=== PATIENT | male | born 1960 | race Caucasian/White ===

== ENCOUNTER 2020-03-25 19:44 | Emergency (ER) | payer OTHER ==
--- NOTE | 2020-03-25 19:59 | PDOC ---
History of Present Illness - General Chief Complaint: Edema Stated Complaint: SWOLLEN RIGHT CALF Time Seen by Provider: 03/25/20 19:58 History Source: Patient Exam Limitations: No Limitations - History of Present Illness Initial Comments: 03/25/20 20:00 59yM w PMHx polysubstance abuse (currently heroin, last use yesterday), OA, Hep B, L foot 1st toe partial amputation 2/2 frostbite, depression, PTSD presenting from [facility] w 4d mild RLE swelling and tenderness. Still ambulates w walker. Never had prior DVT before, not on anticoagulation. Presented to [facility] for heroin detox, referred to ED for further eval. Denies fever, n/v, leg numbness/warmth/trauma. Past History - Medical History Allergies/Adverse Reactions: Allergies Allergy/AdvReac Type Severity Reaction Status Date / Time No Known Allergies Allergy Verified 03/25/20 20:00 Asthma: No Cardiac Disorders: No COPD: No Diabetes: No GI Disorders: No Disorders: No HTN: No Kidney Stones: No Seizures: No - Surgical History Abdominal Surgery: No Appendectomy: No Cardiac Surgery: No Cholecystectomy: No Lung Surgery: No Neurologic Surgery: No Orthopedic Surgery: No - Reproductive History Testicular Surgery: No - Psycho-Social/Smoking History Smoking History: Current every day smoker Have you smoked in the past 12 months: Yes Number of Cigarettes Smoked Daily: 12 Review of Systems - Review of Systems Constitutional: No: Chills, Fever HEENTM: No: Eye Pain, Nose Pain Respiratory: No: Cough, Shortness of Breath Cardiac (ROS): No: Chest Pain, Lightheadedness ABD/GI: No: Nausea, Vomiting : No: Burning, Dysuria Musculoskeletal: No: Back Pain, Joint Pain Integumentary: No: Bruising, Dryness Neurological: No: Headache, Seizure Psychiatric: No: Anxiety, Depression Endocrine: No: Intolerance to Cold, Intolerance to Heat Hematologic/Lymphatic: No: Anemia, Blood Clots *Physical Exam - Physical Exam General Appearance: Yes: Nourished, Appropriately Dressed. No: Apparent Distres s HEENT: positive: EOMI, JUAN, Normal Voice, Hearing Grossly Normal. negative: Scleral Icterus (R), Scleral Icterus (L) Respiratory/Chest: positive: Lungs Clear, Normal Breath Sounds. negative: Chest Tender, Respiratory Distress, Crackles, Rales, Rhonchi, Stridor, Wheezing Cardiovascular: positive: Regular Rhythm, Regular Rate, S1, S2. negative: Murmur Vascular Pulses: Dorsalis-Pedis (R): 2+, Doralis-Pedis (L): 2+ Gastrointestinal/Abdominal: positive: Normal Bowel Sounds, Flat, Soft. negative: Tender, Organomegaly Extremity: positive: Swelling (RLE 2+ pitting edema ankle to knee, mildly tender to palptation, not warmer than surrounding area, no erythema, no discharge/open wounds, shallow ulcers 2/2 prior tight cast), Other (pigmented skin 2/2 prolonged skin exposure, healing superficial partial thickness sunburn RLE medial thigh, L 1st toe partial amputation, deformed R foot, R ankle surgical scars) Integumentary: positive: Warm Neurologic: positive: Fully Oriented, Alert, Normal Response, Motor Strength 5/5, Responsive. negative: Facial Droop, Numbness, Sensory Deficit, Confused, Disoriented Medical Decision Making - Medical Decision Making 03/25/20 20:14 59yM w PMHx polysubstance abuse (currently heroin, last use yesterday), OA, Hep B, L foot 1st toe partial amputation 2/2 frostbite, depression, PTSD presenting from [facility] w 4d mild RLE swelling and tenderness. BLE neurovascular intact, pt able to ambulate w walker. Likely lymphedema. Low concern for cellulitis (not warm) vs DVT (duplex neg) Given tylenol Updated ED course w Dr Edgardo DC back to [facility] w PCP f/u Discharge - Discharge Information Problems reviewed: Yes Clinical Impression/Diagnosis: Right leg swelling Condition: Good Disposition: HOME - Follow up/Referral Referrals: Gordon Bailey MD [Staff Physician] - - Patient Discharge Instructions Patient Printed Discharge Instructions: DI for Lymphedema Additional Instructions: You do not have a blood clot in your leg Wrap your leg in a compression sock and keep it elevated to reduce swelling Please follow up with the referred primary care Dr Bailey - Post Discharge Activity
[2020-03-25 20:00] VITALS: BP 118/80; PULSE 70; TEMP 99.1; BMI 26.7
[2020-03-25] MEDS ORDERED: ACETAMINOPHEN 500 MG TABLET (FP) PO ONE (20:10)
[2020-03-25] MEDS ORDERED: ACETAMINOPHEN 325 MG TABLET (FP) ONE (20:12)
--- NOTE | 2020-03-25 20:44 | PDOC ---
Documentation entered by Gina Parker SCRIBE, acting as scribe for Felicia Vargas MD. Felicia Vargas MD: This documentation has been prepared by the brentibeKeith Ana, SCRIBE, under my direction and personally reviewed by me in its entirety. I confirm that the documentation accurately reflects all work, treatment, procedures, and medical decision making performed by me. Attending Attestation - Resident Resident Name: MameJf - ED Attending Attestation I have performed the following: I have examined & evaluated the patient, The case was reviewed & discussed with the resident, I agree w/resident's findings & plan, Exceptions are as noted - HPI HPI: 03/25/20 20:18 Patient is a 59 year old male with a significant past medical history of substance abuse, osteoarthritis, hepatitis B, depression, PTSD, and left 1st toe amputation 2/2 frostbite, who presents to the ED, from [facility], with mild right lower extremity swelling and tenderness x4 days. Patient was at [facility] for heroin detox and came to ED for further evaluation. Patient ambulates with walker. Patient denies: trauma, warmth, numbness, or any other related symptoms. Allergies: NKDA - Physicial Exam PE: 03/25/20 20:37 tall slender 5o male disheveled p/W c/o right lower leg swelling head ncat lung no wheezing cvs [id number] abddomen nontender extremities LE edema , R>L, chronic venous stasis ,old surgical scars neuro alert and conversant 03/25/20 20:42 - Medical Decision Making 03/25/20 21:24 duplex doppler : there is no dvt in the right leg 03/25/20 21:27 called [id number] and spoke with [facility] staff and they agreed pt could be sent back by security Discharge - Discharge Information Problems reviewed: Yes Clinical Impression/Diagnosis: Right leg swelling Condition: Good Disposition: HOME - Follow up/Referral Referrals: Gordon Bailey MD [Staff Physician] - - Patient Discharge Instructions Patient Printed Discharge Instructions: DI for Lymphedema Additional Instructions: You do not have a blood clot in your leg Wrap your leg in a compression sock and keep it elevated to reduce swelling Please follow up with the referred primary care Dr Bailey - Post Discharge Activity
[2020-03-26] MEDS ORDERED: traZODone HCL 50 MG TABLET (FP) PO SCH (22:00)
== END 2020-03-25 22:08 | disposition home or self-care (01) ==
LOC: JER 19:44
DX: R22.41 Localized swelling, mass and lump, right lower limb (principal)
CPT/HCPCS: 93971-TC; 99284-25

== ENCOUNTER 2020-03-28 11:26 | Inpatient (IN) | payer OTHER ==
[2020-03-28] MEDS ORDERED: MENTHOL/PHENOL 1 EACH UD MM PRN (12:14)
[2020-03-28] MEDS ORDERED: MAGNESIUM HYDROX 2400MG/30ML ORAL SUSPENSION 30 ML CUP PO PRN (12:14)
[2020-03-28] MEDS ORDERED: guaiFENesin 200 MG/10 ML 10 ML UNIT-DOSE CUPS PO PRN (12:14)
[2020-03-28] MEDS ORDERED: LOPERAMIDE HCL 2 MG CAPSULE PO PRN (12:14)
[2020-03-28] MEDS ORDERED: MAG HYDROX/AL HYDROX/SIMETH 30 ML UNIT-DOSE CUP PO PRN (12:14)
[2020-03-28] MEDS ORDERED: MAGNESIUM CITRATE 300 ML BOTTLE PO PRN (12:14)
[2020-03-28] MEDS ORDERED: P-EPHED 60MG/TRIPROLIDI 2.5MG TABLET PO PRN (12:14)
--- NOTE | 2020-03-28 12:23 | HP ---
[facility] Rehab Assess/Revision - Admission History Admitted to Rehab from: [facility] [place] - Vital signs Vital Signs: Vital Signs Period Temp Pulse Resp BP Sys/Anderson Pulse Ox Last 24 Hr 97.8 F 75 18 142/78 - Findings Detox History & Physical reviewed: Yes Concur with findings: Yes Inpatient Rehab Admission - Rehab Decision to Admit Inpatient rehab admission?: Yes - Initial Determination Are CD services needed?: Yes Free of communicable disease: Yes Not in need of hospitalization: Yes - Rehab Admission Criteria Previous failed treatment: Yes Poor recovery environment: Yes Comorbidities: No Lacks judgement: No Patient is meeting Inpatient Rehab admission criteria:: Yes
[2020-03-28] MEDS: hydrOXYzine PAMOATE 25 MG CAPSULE (FP) PO SCH ×3 (14:03→21:34)
[2020-03-28] MEDS: MELATONIN 5 MG TABLETS PO SCH (21:33)
[2020-03-28] MEDS: THIAMINE HCL 100 MG TABLET (FP) PO SCH (21:34)
[2020-03-28] MEDS: SILVER SULFADIAZINE 1% TOP CREAM 50 GM JAR TP SCH (21:34)
[2020-03-29] MEDS: hydrOXYzine PAMOATE 25 MG CAPSULE (FP) PO SCH ×5 (06:10→21:48)
[2020-03-29] MEDS: PRENATAL VITAMINS W/ FOLIC ACID TABLET (FP) PO SCH (10:20)
[2020-03-29] MEDS: NICOTINE 7 MG/24 HOURS TOPICAL PATCH TD SCH (10:20)
[2020-03-29] MEDS: SILVER SULFADIAZINE 1% TOP CREAM 50 GM JAR TP SCH ×2 (10:22→21:48)
[2020-03-29] MEDS: ACETAMINOPHEN 325 MG TABLET (FP) PO PRN (21:47)
[2020-03-29] MEDS: THIAMINE HCL 100 MG TABLET (FP) PO SCH (21:48)
[2020-03-29] MEDS: MELATONIN 5 MG TABLETS PO SCH (21:48)
[2020-03-30] MEDS: hydrOXYzine PAMOATE 25 MG CAPSULE (FP) PO SCH ×5 (06:17→21:17)
[2020-03-30] MEDS: PRENATAL VITAMINS W/ FOLIC ACID TABLET (FP) PO SCH (10:33)
[2020-03-30] MEDS: SILVER SULFADIAZINE 1% TOP CREAM 50 GM JAR TP SCH ×2 (10:33→21:18)
[2020-03-30] MEDS: NICOTINE 7 MG/24 HOURS TOPICAL PATCH TD SCH (10:36)
[2020-03-30] MEDS: THIAMINE HCL 100 MG TABLET (FP) PO SCH (21:17)
[2020-03-30] MEDS: MELATONIN 5 MG TABLETS PO SCH (21:17)
[2020-03-31] MEDS: hydrOXYzine PAMOATE 25 MG CAPSULE (FP) PO SCH ×2 (06:16→10:25)
[2020-03-31] MEDS: ACETAMINOPHEN 325 MG TABLET (FP) PO PRN ×2 (06:17→22:11)
[2020-03-31] MEDS: PRENATAL VITAMINS W/ FOLIC ACID TABLET (FP) PO SCH (10:25)
[2020-03-31] MEDS: NICOTINE 7 MG/24 HOURS TOPICAL PATCH TD SCH (10:25)
[2020-03-31] MEDS: SILVER SULFADIAZINE 1% TOP CREAM 50 GM JAR TP SCH ×2 (10:26→22:09)
[2020-03-31] MEDS: hydrOXYzine PAMOATE 50 MG CAPSULE (FP) PO PRN (22:09)
[2020-03-31] MEDS: THIAMINE HCL 100 MG TABLET (FP) PO SCH (22:09)
[2020-03-31] MEDS: MELATONIN 5 MG TABLETS PO SCH (22:09)
[2020-04-01] MEDS: PRENATAL VITAMINS W/ FOLIC ACID TABLET (FP) PO SCH (10:24)
[2020-04-01] MEDS: hydrOXYzine PAMOATE 50 MG CAPSULE (FP) PO PRN (10:24)
[2020-04-01] MEDS: SILVER SULFADIAZINE 1% TOP CREAM 50 GM JAR TP SCH ×2 (10:25→22:12)
[2020-04-01] MEDS: ACETAMINOPHEN 325 MG TABLET (FP) PO PRN (10:25)
[2020-04-01] MEDS: NICOTINE 7 MG/24 HOURS TOPICAL PATCH TD SCH (10:45)
--- NOTE | 2020-04-01 15:01 | PN ---
S Progress Note Note: Patient was seen by Dr Coronado on 03/26/20 and Trazdone 50 mg/hs was ordered. Resume Trazadone 50 mg/hs
[2020-04-01] MEDS: IBUPROFEN 400 MG TABLET (FP) PO PRN (18:07)
[2020-04-01] MEDS: NICOTINE POLACRILEX 2 MG GUM BUC PRN ×2 (18:08→21:28)
[2020-04-01] MEDS: THIAMINE HCL 100 MG TABLET (FP) PO SCH (21:28)
[2020-04-01] MEDS: MELATONIN 5 MG TABLETS PO SCH (21:28)
[2020-04-01] MEDS: traZODone HCL 50 MG TABLET (FP) PO SCH (21:29)
[2020-04-02] MEDS: hydrOXYzine PAMOATE 50 MG CAPSULE (FP) PO PRN ×3 (06:33→22:03)
[2020-04-02] MEDS: IBUPROFEN 400 MG TABLET (FP) PO PRN ×2 (06:33→22:02)
[2020-04-02] MEDS: NICOTINE POLACRILEX 2 MG GUM BUC PRN (06:34)
[2020-04-02] MEDS: NICOTINE 7 MG/24 HOURS TOPICAL PATCH TD SCH (10:18)
[2020-04-02] MEDS: PRENATAL VITAMINS W/ FOLIC ACID TABLET (FP) PO SCH (10:18)
[2020-04-02] MEDS: SILVER SULFADIAZINE 1% TOP CREAM 50 GM JAR TP SCH ×2 (10:19→22:03)
[2020-04-02] MEDS: MELATONIN 5 MG TABLETS PO SCH (22:03)
[2020-04-02] MEDS: traZODone HCL 50 MG TABLET (FP) PO SCH (22:03)
[2020-04-02] MEDS: THIAMINE HCL 100 MG TABLET (FP) PO SCH (22:03)
[2020-04-03] MEDS: SILVER SULFADIAZINE 1% TOP CREAM 50 GM JAR TP SCH ×2 (10:00→21:42)
[2020-04-03] MEDS: hydrOXYzine PAMOATE 50 MG CAPSULE (FP) PO PRN ×2 (10:00→21:27)
[2020-04-03] MEDS: PRENATAL VITAMINS W/ FOLIC ACID TABLET (FP) PO SCH (10:00)
[2020-04-03] MEDS: NICOTINE 7 MG/24 HOURS TOPICAL PATCH TD SCH (10:00)
[2020-04-03] MEDS: IBUPROFEN 400 MG TABLET (FP) PO PRN ×2 (10:00→21:27)
[2020-04-03] MEDS: ACETAMINOPHEN 325 MG TABLET (FP) PO PRN (14:37)
[2020-04-03] MEDS: MELATONIN 5 MG TABLETS PO SCH (21:26)
[2020-04-03] MEDS: THIAMINE HCL 100 MG TABLET (FP) PO SCH (21:26)
[2020-04-03] MEDS: traZODone HCL 50 MG TABLET (FP) PO SCH (21:26)
[2020-04-04] MEDS: PRENATAL VITAMINS W/ FOLIC ACID TABLET (FP) PO SCH (09:51)
[2020-04-04] MEDS: hydrOXYzine PAMOATE 50 MG CAPSULE (FP) PO PRN (09:51)
[2020-04-04] MEDS: NICOTINE 7 MG/24 HOURS TOPICAL PATCH TD SCH (09:51)
[2020-04-04] MEDS: IBUPROFEN 400 MG TABLET (FP) PO PRN ×2 (09:52→21:29)
[2020-04-04] MEDS: SILVER SULFADIAZINE 1% TOP CREAM 50 GM JAR TP SCH ×2 (09:55→21:29)
[2020-04-04] MEDS: MELATONIN 5 MG TABLETS PO SCH (21:29)
[2020-04-04] MEDS: THIAMINE HCL 100 MG TABLET (FP) PO SCH (21:29)
[2020-04-04] MEDS: traZODone HCL 50 MG TABLET (FP) PO SCH (21:29)
[2020-04-05] MEDS ORDERED: PT OWN MED DRAWER 7, Y5N ONE (08:24)
[2020-04-05] MEDS: NICOTINE 7 MG/24 HOURS TOPICAL PATCH TD SCH (10:09)
[2020-04-05] MEDS: PRENATAL VITAMINS W/ FOLIC ACID TABLET (FP) PO SCH (10:09)
[2020-04-05] MEDS: SILVER SULFADIAZINE 1% TOP CREAM 50 GM JAR TP SCH ×2 (10:10→22:15)
[2020-04-05] MEDS: IBUPROFEN 400 MG TABLET (FP) PO PRN (10:10)
[2020-04-05] MEDS: MELATONIN 5 MG TABLETS PO SCH (21:36)
[2020-04-05] MEDS: traZODone HCL 50 MG TABLET (FP) PO SCH (21:36)
[2020-04-05] MEDS: THIAMINE HCL 100 MG TABLET (FP) PO SCH (21:36)
[2020-04-06] MEDS: NICOTINE 7 MG/24 HOURS TOPICAL PATCH TD SCH (09:46)
[2020-04-06] MEDS: SILVER SULFADIAZINE 1% TOP CREAM 50 GM JAR TP SCH ×2 (09:47→21:15)
[2020-04-06] MEDS: IBUPROFEN 400 MG TABLET (FP) PO PRN ×2 (09:47→21:17)
[2020-04-06] MEDS: PRENATAL VITAMINS W/ FOLIC ACID TABLET (FP) PO SCH (09:47)
[2020-04-06] MEDS: hydrOXYzine PAMOATE 50 MG CAPSULE (FP) PO PRN (09:47)
[2020-04-06] MEDS: ACETAMINOPHEN 325 MG TABLET (FP) PO PRN (17:34)
[2020-04-06] MEDS: MELATONIN 5 MG TABLETS PO SCH (21:16)
[2020-04-06] MEDS: THIAMINE HCL 100 MG TABLET (FP) PO SCH (21:16)
[2020-04-06] MEDS: traZODone HCL 50 MG TABLET (FP) PO SCH (21:16)
[2020-04-07] MEDS: NICOTINE 7 MG/24 HOURS TOPICAL PATCH TD SCH (10:16)
[2020-04-07] MEDS: PRENATAL VITAMINS W/ FOLIC ACID TABLET (FP) PO SCH (10:16)
[2020-04-07] MEDS: SILVER SULFADIAZINE 1% TOP CREAM 50 GM JAR TP SCH ×2 (10:16→21:28)
[2020-04-07] MEDS: NICOTINE POLACRILEX 2 MG GUM BUC PRN (10:16)
[2020-04-07] MEDS: hydrOXYzine PAMOATE 50 MG CAPSULE (FP) PO PRN ×2 (10:16→21:29)
[2020-04-07] MEDS: IBUPROFEN 400 MG TABLET (FP) PO PRN (10:18)
[2020-04-07] MEDS: MELATONIN 5 MG TABLETS PO SCH (21:28)
[2020-04-07] MEDS: traZODone HCL 50 MG TABLET (FP) PO SCH (21:28)
[2020-04-07] MEDS: THIAMINE HCL 100 MG TABLET (FP) PO SCH (21:28)
[2020-04-08] MEDS: PRENATAL VITAMINS W/ FOLIC ACID TABLET (FP) PO SCH (09:55)
[2020-04-08] MEDS: hydrOXYzine PAMOATE 50 MG CAPSULE (FP) PO PRN ×2 (09:55→21:20)
[2020-04-08] MEDS: IBUPROFEN 400 MG TABLET (FP) PO PRN ×2 (09:57→21:20)
[2020-04-08] MEDS: NICOTINE 7 MG/24 HOURS TOPICAL PATCH TD SCH (10:08)
[2020-04-08] MEDS: SILVER SULFADIAZINE 1% TOP CREAM 50 GM JAR TP SCH ×2 (10:08→21:19)
[2020-04-08] MEDS: NICOTINE POLACRILEX 2 MG GUM BUC PRN (11:02)
[2020-04-08] MEDS: THIAMINE HCL 100 MG TABLET (FP) PO SCH (21:19)
[2020-04-08] MEDS: traZODone HCL 50 MG TABLET (FP) PO SCH (21:19)
[2020-04-08] MEDS: MELATONIN 5 MG TABLETS PO SCH (21:20)
[2020-04-09] MEDS: hydrOXYzine PAMOATE 50 MG CAPSULE (FP) PO PRN ×2 (10:02→21:21)
[2020-04-09] MEDS: PRENATAL VITAMINS W/ FOLIC ACID TABLET (FP) PO SCH (10:02)
[2020-04-09] MEDS: IBUPROFEN 400 MG TABLET (FP) PO PRN ×2 (10:03→21:21)
[2020-04-09] MEDS: NICOTINE 7 MG/24 HOURS TOPICAL PATCH TD SCH (10:07)
[2020-04-09] MEDS: SILVER SULFADIAZINE 1% TOP CREAM 50 GM JAR TP SCH ×2 (10:07→21:21)
[2020-04-09] MEDS: traZODone HCL 50 MG TABLET (FP) PO SCH (21:21)
[2020-04-09] MEDS: THIAMINE HCL 100 MG TABLET (FP) PO SCH (21:21)
[2020-04-09] MEDS: MELATONIN 5 MG TABLETS PO SCH (21:21)
[2020-04-10] MEDS: NICOTINE 7 MG/24 HOURS TOPICAL PATCH TD SCH (10:07)
[2020-04-10] MEDS: PRENATAL VITAMINS W/ FOLIC ACID TABLET (FP) PO SCH (10:08)
[2020-04-10] MEDS: SILVER SULFADIAZINE 1% TOP CREAM 50 GM JAR TP SCH ×2 (10:08→21:39)
[2020-04-10] MEDS: IBUPROFEN 400 MG TABLET (FP) PO PRN ×2 (10:09→21:41)
[2020-04-10] MEDS: hydrOXYzine PAMOATE 50 MG CAPSULE (FP) PO PRN ×2 (10:09→21:40)
--- NOTE | 2020-04-10 10:09 | CONSULT ---
[facility] Psychiatric Consult - Data Date of interview: 04/10/20 Admission source: [facility] Identifying data: Patient is a 59 year old male, , father of a 29 year old son, unemployed, disabled and is supported on personal savings. This is patient's first admission to rehab at [facility]. Patient admitted to [facility] for treatment of heroin, benzodiazepine (xanax), nicotine. Substance Abuse History: Smoking Cessation. Smoking history: Current every day smoker. Have you smoked in the past 12 months: Yes. Initiated information on smoking cessation: Yes. 'Breaking Loose' booklet given: 03/25/20. - Substances abused. Heroin. Substance route: Inhalation. Frequency: Daily. Amount used: 7 BAGS. Age of first use: 18. Date of last use: 03/24/20 Medical History: Medical profile is remarkable for hepatitis B, diabetes mellitus, osteoarthritis (knees, shoulders, ankles), partial amputation of first toe (left foot) due to frostbite in 2019 and history of orthosurgery (fracture of right humerus + right ankle). Psychiatric History: Mr. Hariston reports history of two psychiatric hospitalizations ( [facility] + [facility]). His most recent hospitalization occured at [facility] in 2017 due to feeling depressed and having urges to hurt himself. Diagnosis of MDD +PTSD. Mr. Hairston most recently received outpatient psychiatric care at [facility] in 2018 and was prescribed Seroquel 100mg + Trazodone 100mg HS. Patient states that he buys trazodone 50mg from the streets. Patient was seen by Dr. Hinds and was prescribed trazodone 50mg HS. At present patient reports stable mood but is experiencing difficulty sleeping. Physical/Sexual Abuse/Trauma History: Girlfriend was murdered in 1977, multiple deaths in family, divorce, of second , financial difficulties, homelessness and addictions Mental Status Exam - Mental Status Exam Alert and Oriented to: Time, Place, Person Cognitive Function: Good Patient Appearance: Well Groomed Mood: Hopeful Affect: Appropriate Patient Behavior: Appropriate, Cooperative Speech Pattern: Appropriate Voice Loudness: Normal Thought Process: Intact, Goal Oriented Hallucinations: Denies Suicidal Ideation: Denies Homicidal Ideation: Denies Insight/Judgement: Poor Sleep: Poorly Appetite: Fair Muscle strength/Tone: Normal Gait/Station: Normal Psychiatric Findings - Problem List ([place] 1, 2,3) (1) Substance-induced sleep disorder Current Visit: Yes Status: Acute (2) Nicotine abuse Current Visit: Yes Status: Chronic (3) Opioid use disorder Current Visit: Yes Status: Chronic (4) H/O: depression Current Visit: No Status: Chronic - Initial Treatment Plan Initial Treatment Plan: Psychoeducation provided. Detoxification in progress. Will d/c Trazodone 50mg HS + Melatonin 5mg HS. Will order Trazodone 100mg HS + Melatonin 10mg HS PRN. Benefits and side effects discussed. Verbal consent given.
[2020-04-10] MEDS: NICOTINE POLACRILEX 2 MG GUM BUC PRN (10:10)
[2020-04-10] MEDS: THIAMINE HCL 100 MG TABLET (FP) PO SCH (21:40)
[2020-04-10] MEDS: MELATONIN 5 MG TABLETS PO SCH (21:40)
[2020-04-10] MEDS: traZODone HCL 100 MG TABLET (FP) PO SCH (21:41)
[2020-04-11] MEDS ORDERED: PT OWN MED DRAWER 7, Y5N ONE (08:25)
[2020-04-11] MEDS: PRENATAL VITAMINS W/ FOLIC ACID TABLET (FP) PO SCH (10:32)
[2020-04-11] MEDS: IBUPROFEN 400 MG TABLET (FP) PO PRN (10:32)
[2020-04-11] MEDS: NICOTINE POLACRILEX 2 MG GUM BUC PRN (10:33)
[2020-04-11] MEDS: NICOTINE 7 MG/24 HOURS TOPICAL PATCH TD SCH (10:34)
[2020-04-11] MEDS: SILVER SULFADIAZINE 1% TOP CREAM 50 GM JAR TP SCH ×2 (10:34→21:41)
[2020-04-11] MEDS: THIAMINE HCL 100 MG TABLET (FP) PO SCH (21:39)
[2020-04-11] MEDS: traZODone HCL 100 MG TABLET (FP) PO SCH (21:39)
[2020-04-11] MEDS: MELATONIN 5 MG TABLETS PO SCH (21:41)
[2020-04-12] MEDS ORDERED: PT OWN MED DRAWER 7, Y5N ONE (09:29)
[2020-04-12] MEDS: PRENATAL VITAMINS W/ FOLIC ACID TABLET (FP) PO SCH (09:54)
[2020-04-12] MEDS: IBUPROFEN 400 MG TABLET (FP) PO PRN ×2 (09:55→21:24)
[2020-04-12] MEDS: NICOTINE 7 MG/24 HOURS TOPICAL PATCH TD SCH (09:56)
[2020-04-12] MEDS: SILVER SULFADIAZINE 1% TOP CREAM 50 GM JAR TP SCH ×2 (09:56→21:27)
[2020-04-12] MEDS: traZODone HCL 100 MG TABLET (FP) PO SCH (21:23)
[2020-04-12] MEDS: MELATONIN 5 MG TABLETS PO SCH (21:23)
[2020-04-12] MEDS: THIAMINE HCL 100 MG TABLET (FP) PO SCH (21:23)
[2020-04-13] MEDS: PRENATAL VITAMINS W/ FOLIC ACID TABLET (FP) PO SCH (09:44)
[2020-04-13] MEDS: IBUPROFEN 400 MG TABLET (FP) PO PRN ×2 (09:45→21:24)
[2020-04-13] MEDS: NICOTINE 7 MG/24 HOURS TOPICAL PATCH TD SCH (09:46)
[2020-04-13] MEDS: SILVER SULFADIAZINE 1% TOP CREAM 50 GM JAR TP SCH ×2 (09:47→21:25)
[2020-04-13] MEDS: MELATONIN 5 MG TABLETS PO SCH (21:24)
[2020-04-13] MEDS: hydrOXYzine PAMOATE 50 MG CAPSULE (FP) PO PRN (21:24)
[2020-04-13] MEDS: traZODone HCL 100 MG TABLET (FP) PO SCH (21:24)
[2020-04-13] MEDS: THIAMINE HCL 100 MG TABLET (FP) PO SCH (21:24)
[2020-04-14] MEDS: PRENATAL VITAMINS W/ FOLIC ACID TABLET (FP) PO SCH (10:19)
[2020-04-14] MEDS: SILVER SULFADIAZINE 1% TOP CREAM 50 GM JAR TP SCH ×2 (10:19→21:38)
[2020-04-14] MEDS: NICOTINE 7 MG/24 HOURS TOPICAL PATCH TD SCH (10:19)
--- NOTE | 2020-04-14 14:03 | PN ---
[facility] Progress Note Note: Vital Signs Temperature 97.7 F 04/14/20 05:54 Pulse Rate 68 04/14/20 05:54 Respiratory Rate 18 04/14/20 05:54 Blood Pressure 100/60 04/14/20 05:54 O2 Sat by Pulse Oximetry (%) 98 04/14/20 05:54 Laboratory Tests 04/04/20 10:30 COVID-19 (GONZÁLEZ) Not detected PATIENT EVALUATED FOR C/O RECTAL BLEEDING (UNWITNESSED). PATIENT DENIES CONSTIPATION AND HX OF PRIOR RECTAL BLEEDING/HEMORRHOIDS. PATIENT STATES IT HAPPENED ONLY THIS MORNING AFTER BATHING. HE STATES AFTER HE WIPED HIMSELF, HE NOTED BLOOD ON TISSUE. DENIES ANY SYMPTOMS EXCEPT MILD DIZZINESS. HAS HX OF PRE DIABETES PE (EXAM CONDUCTED WITH PAM [place]RA[place] PRESENT) ALERT AND ORIENTED X 3 SKIN WARM AND DRY +PERRLA, EOMS INTACT BL GI NT, ND RECTAL AREA INTACT, NO EXTERNAL HEMORROIDS OR ACTIVE BLEEDING PRESENT A/P RECTAL BLEEDING (UNWITNESSED) DIZZINESS WILL MONITOR SYMPTOMS OF BLEEDING FOR NOW. PATIENT INFORMED TO CALL RN/FISH NET STRINGER IF BLEEDING OCCURS. WILL CHECK BGM DAILY X 3 DAYS DUE TO C/O DIZZINESS AND HX OF PREDM CONTINUE TO MONITOR CLINICALLY
[2020-04-14] MEDS: IBUPROFEN 400 MG TABLET (FP) PO PRN (21:37)
[2020-04-14] MEDS: traZODone HCL 100 MG TABLET (FP) PO SCH (21:37)
[2020-04-14] MEDS: MELATONIN 5 MG TABLETS PO SCH (21:37)
[2020-04-14] MEDS: THIAMINE HCL 100 MG TABLET (FP) PO SCH (21:38)
[2020-04-15] MEDS: PRENATAL VITAMINS W/ FOLIC ACID TABLET (FP) PO SCH (09:46)
[2020-04-15] MEDS: NICOTINE 7 MG/24 HOURS TOPICAL PATCH TD SCH (09:46)
[2020-04-15] MEDS: SILVER SULFADIAZINE 1% TOP CREAM 50 GM JAR TP SCH ×2 (09:47→21:24)
[2020-04-15] MEDS: IBUPROFEN 400 MG TABLET (FP) PO PRN ×2 (09:47→21:25)
[2020-04-15] MEDS: NICOTINE POLACRILEX 2 MG GUM BUC PRN (09:48)
[2020-04-15] MEDS: traZODone HCL 100 MG TABLET (FP) PO SCH (21:24)
[2020-04-15] MEDS: hydrOXYzine PAMOATE 50 MG CAPSULE (FP) PO PRN (21:24)
[2020-04-15] MEDS: MELATONIN 5 MG TABLETS PO SCH (21:24)
[2020-04-15] MEDS: THIAMINE HCL 100 MG TABLET (FP) PO SCH (21:24)
[2020-04-16] MEDS: PRENATAL VITAMINS W/ FOLIC ACID TABLET (FP) PO SCH (10:09)
[2020-04-16] MEDS: hydrOXYzine PAMOATE 50 MG CAPSULE (FP) PO PRN ×2 (10:09→21:03)
[2020-04-16] MEDS: IBUPROFEN 400 MG TABLET (FP) PO PRN ×2 (10:10→21:03)
[2020-04-16] MEDS: NICOTINE 7 MG/24 HOURS TOPICAL PATCH TD SCH (10:19)
[2020-04-16] MEDS: SILVER SULFADIAZINE 1% TOP CREAM 50 GM JAR TP SCH ×2 (10:19→21:17)
[2020-04-16] MEDS: THIAMINE HCL 100 MG TABLET (FP) PO SCH (21:03)
[2020-04-16] MEDS: traZODone HCL 100 MG TABLET (FP) PO SCH (21:03)
[2020-04-16] MEDS: MELATONIN 5 MG TABLETS PO SCH (21:04)
[2020-04-17] MEDS: hydrOXYzine PAMOATE 50 MG CAPSULE (FP) PO PRN (09:59)
[2020-04-17] MEDS: PRENATAL VITAMINS W/ FOLIC ACID TABLET (FP) PO SCH (09:59)
[2020-04-17] MEDS: IBUPROFEN 400 MG TABLET (FP) PO PRN ×2 (09:59→21:25)
[2020-04-17] MEDS: NICOTINE 7 MG/24 HOURS TOPICAL PATCH TD SCH (10:00)
[2020-04-17] MEDS: SILVER SULFADIAZINE 1% TOP CREAM 50 GM JAR TP SCH ×2 (10:00→21:25)
[2020-04-17] MEDS ORDERED: PT OWN MED DRAWER 7, Y5N ONE ×2 (18:31→18:32)
[2020-04-17] MEDS: MELATONIN 5 MG TABLETS PO SCH (21:24)
[2020-04-17] MEDS: traZODone HCL 100 MG TABLET (FP) PO SCH (21:24)
[2020-04-17] MEDS: THIAMINE HCL 100 MG TABLET (FP) PO SCH (21:24)
[2020-04-18] MEDS: PRENATAL VITAMINS W/ FOLIC ACID TABLET (FP) PO SCH (10:08)
[2020-04-18] MEDS: hydrOXYzine PAMOATE 50 MG CAPSULE (FP) PO PRN ×2 (10:08→21:20)
[2020-04-18] MEDS: IBUPROFEN 400 MG TABLET (FP) PO PRN ×2 (10:08→21:20)
[2020-04-18] MEDS: SILVER SULFADIAZINE 1% TOP CREAM 50 GM JAR TP SCH ×2 (10:09→21:29)
[2020-04-18] MEDS: NICOTINE 7 MG/24 HOURS TOPICAL PATCH TD SCH (10:09)
[2020-04-18] MEDS: THIAMINE HCL 100 MG TABLET (FP) PO SCH (21:19)
[2020-04-18] MEDS: MELATONIN 5 MG TABLETS PO SCH (21:19)
[2020-04-18] MEDS: traZODone HCL 100 MG TABLET (FP) PO SCH (21:19)
[2020-04-19] MEDS: NICOTINE POLACRILEX 2 MG GUM BUC PRN (09:59)
[2020-04-19] MEDS: PRENATAL VITAMINS W/ FOLIC ACID TABLET (FP) PO SCH (09:59)
[2020-04-19] MEDS: SILVER SULFADIAZINE 1% TOP CREAM 50 GM JAR TP SCH ×2 (09:59→21:20)
[2020-04-19] MEDS: IBUPROFEN 400 MG TABLET (FP) PO PRN ×2 (09:59→21:19)
[2020-04-19] MEDS: NICOTINE 7 MG/24 HOURS TOPICAL PATCH TD SCH (09:59)
[2020-04-19] MEDS: MELATONIN 5 MG TABLETS PO SCH (21:19)
[2020-04-19] MEDS: traZODone HCL 100 MG TABLET (FP) PO SCH (21:19)
[2020-04-19] MEDS: THIAMINE HCL 100 MG TABLET (FP) PO SCH (21:20)
[2020-04-20] MEDS: PRENATAL VITAMINS W/ FOLIC ACID TABLET (FP) PO SCH (09:29)
[2020-04-20] MEDS: NICOTINE 7 MG/24 HOURS TOPICAL PATCH TD SCH (09:30)
[2020-04-20] MEDS: SILVER SULFADIAZINE 1% TOP CREAM 50 GM JAR TP SCH ×2 (09:30→21:16)
[2020-04-20] MEDS: IBUPROFEN 400 MG TABLET (FP) PO PRN ×2 (09:30→21:16)
[2020-04-20] MEDS: NICOTINE POLACRILEX 2 MG GUM BUC PRN (09:31)
[2020-04-20] MEDS: THIAMINE HCL 100 MG TABLET (FP) PO SCH (21:15)
[2020-04-20] MEDS: MELATONIN 5 MG TABLETS PO SCH (21:15)
[2020-04-20] MEDS: traZODone HCL 100 MG TABLET (FP) PO SCH (21:15)
[2020-04-21] MEDS: hydrOXYzine PAMOATE 50 MG CAPSULE (FP) PO PRN ×2 (09:55→21:25)
[2020-04-21] MEDS: IBUPROFEN 400 MG TABLET (FP) PO PRN ×2 (09:55→21:25)
[2020-04-21] MEDS: PRENATAL VITAMINS W/ FOLIC ACID TABLET (FP) PO SCH (09:55)
[2020-04-21] MEDS: NICOTINE 7 MG/24 HOURS TOPICAL PATCH TD SCH (09:56)
[2020-04-21] MEDS: SILVER SULFADIAZINE 1% TOP CREAM 50 GM JAR TP SCH ×2 (09:56→21:45)
[2020-04-21] MEDS: traZODone HCL 100 MG TABLET (FP) PO SCH (21:25)
[2020-04-21] MEDS: MELATONIN 5 MG TABLETS PO SCH (21:25)
[2020-04-21] MEDS: THIAMINE HCL 100 MG TABLET (FP) PO SCH (21:25)
[2020-04-22] MEDS: hydrOXYzine PAMOATE 50 MG CAPSULE (FP) PO PRN ×2 (10:20→21:19)
[2020-04-22] MEDS: PRENATAL VITAMINS W/ FOLIC ACID TABLET (FP) PO SCH (10:20)
[2020-04-22] MEDS: IBUPROFEN 400 MG TABLET (FP) PO PRN ×2 (10:20→21:19)
[2020-04-22] MEDS: NICOTINE 7 MG/24 HOURS TOPICAL PATCH TD SCH (10:22)
[2020-04-22] MEDS: SILVER SULFADIAZINE 1% TOP CREAM 50 GM JAR TP SCH ×2 (10:22→21:40)
[2020-04-22] MEDS: traZODone HCL 100 MG TABLET (FP) PO SCH (21:19)
[2020-04-22] MEDS: THIAMINE HCL 100 MG TABLET (FP) PO SCH (21:19)
[2020-04-22] MEDS: MELATONIN 5 MG TABLETS PO SCH (21:19)
[2020-04-23] MEDS: PRENATAL VITAMINS W/ FOLIC ACID TABLET (FP) PO SCH (09:48)
[2020-04-23] MEDS: IBUPROFEN 400 MG TABLET (FP) PO PRN ×2 (09:48→21:24)
[2020-04-23] MEDS: hydrOXYzine PAMOATE 50 MG CAPSULE (FP) PO PRN (09:48)
[2020-04-23] MEDS: NICOTINE POLACRILEX 2 MG GUM BUC PRN (09:49)
[2020-04-23] MEDS: SILVER SULFADIAZINE 1% TOP CREAM 50 GM JAR TP SCH ×2 (10:17→21:25)
[2020-04-23] MEDS: NICOTINE 7 MG/24 HOURS TOPICAL PATCH TD SCH (10:17)
--- NOTE | 2020-04-23 14:52 | PN ---
[facility] Progress Note Note: Patient is scheduled to go to [facility]. PMHx of Hep B, unconfirmed. [facility] wants confirmation. Hep B panel drawn today. Pt has distant history of hep B from the early 1980s. He states no treatment. Also states he was tested for HEP C and the liver specialist stated it was inflammation from HEP B, however there is no documentation in chart. Counselor will attempt to get records, I will order a HEP B panel.
[2020-04-23] MEDS: MELATONIN 5 MG TABLETS PO SCH (21:23)
[2020-04-23] MEDS: traZODone HCL 100 MG TABLET (FP) PO SCH (21:23)
[2020-04-23] MEDS: THIAMINE HCL 100 MG TABLET (FP) PO SCH (21:23)
[2020-04-24] MEDS: hydrOXYzine PAMOATE 50 MG CAPSULE (FP) PO PRN (10:09)
[2020-04-24] MEDS: IBUPROFEN 400 MG TABLET (FP) PO PRN ×2 (10:09→21:14)
[2020-04-24] MEDS: PRENATAL VITAMINS W/ FOLIC ACID TABLET (FP) PO SCH (10:09)
[2020-04-24] MEDS: SILVER SULFADIAZINE 1% TOP CREAM 50 GM JAR TP SCH ×2 (10:10→21:15)
[2020-04-24] MEDS: NICOTINE 7 MG/24 HOURS TOPICAL PATCH TD SCH (10:10)
[2020-04-24] MEDS: traZODone HCL 100 MG TABLET (FP) PO SCH (21:14)
[2020-04-24] MEDS: THIAMINE HCL 100 MG TABLET (FP) PO SCH (21:14)
[2020-04-24] MEDS: MELATONIN 5 MG TABLETS PO SCH (21:14)
[2020-04-25] MEDS: IBUPROFEN 400 MG TABLET (FP) PO PRN ×2 (10:04→21:22)
[2020-04-25] MEDS: PRENATAL VITAMINS W/ FOLIC ACID TABLET (FP) PO SCH (10:04)
[2020-04-25] MEDS: hydrOXYzine PAMOATE 50 MG CAPSULE (FP) PO PRN (10:04)
[2020-04-25] MEDS: SILVER SULFADIAZINE 1% TOP CREAM 50 GM JAR TP SCH ×2 (10:06→21:24)
[2020-04-25] MEDS: NICOTINE 7 MG/24 HOURS TOPICAL PATCH TD SCH (10:06)
--- NOTE | 2020-04-25 17:05 | PN ---
S Progress Note Note: Psychiatric nurse practitioner note: Patient reports difficulty sleeping despite accepting Trazodone 100mg HS. 1) Will d/c Trazodone 100mg HS. 2) Will order Trazodone 150mg HS. Benefits and side effects discussed. Verbal consent given.
[2020-04-25] MEDS: THIAMINE HCL 100 MG TABLET (FP) PO SCH (21:22)
[2020-04-25] MEDS: MELATONIN 5 MG TABLETS PO SCH (21:22)
[2020-04-25] MEDS: traZODone HCL 100 MG TABLET (FP) PO SCH (21:24)
[2020-04-26 00:06] LABS: HEP B CORE AB, TOT Positive (Negative)
[2020-04-26] MEDS: NICOTINE 7 MG/24 HOURS TOPICAL PATCH TD SCH (10:15)
[2020-04-26] MEDS: SILVER SULFADIAZINE 1% TOP CREAM 50 GM JAR TP SCH ×2 (10:15→21:15)
[2020-04-26] MEDS: PRENATAL VITAMINS W/ FOLIC ACID TABLET (FP) PO SCH (10:15)
[2020-04-26] MEDS: IBUPROFEN 400 MG TABLET (FP) PO PRN (10:15)
[2020-04-26] MEDS: traZODone HCL 100 MG TABLET (FP) PO SCH (21:13)
[2020-04-26] MEDS: THIAMINE HCL 100 MG TABLET (FP) PO SCH (21:13)
[2020-04-26] MEDS: MELATONIN 5 MG TABLETS PO SCH (21:13)
[2020-04-27] MEDS: IBUPROFEN 400 MG TABLET (FP) PO PRN ×2 (09:45→21:30)
[2020-04-27] MEDS: PRENATAL VITAMINS W/ FOLIC ACID TABLET (FP) PO SCH (09:45)
[2020-04-27] MEDS: NICOTINE 7 MG/24 HOURS TOPICAL PATCH TD SCH (09:46)
[2020-04-27] MEDS: SILVER SULFADIAZINE 1% TOP CREAM 50 GM JAR TP SCH ×2 (09:46→21:30)
--- NOTE | 2020-04-27 11:54 | PN ---
S Progress Note Note: Psychiatric nurse practitioner note: Patient scheduled for discharge on 04/27/20. A 30 day prescription of Trazodone 150mg HS was electronically sent to [facility] @ [address] [place] [id number].
[2020-04-27 20:46] VITALS: TEMP 97.3
[2020-04-27] MEDS: MELATONIN 5 MG TABLETS PO SCH (21:29)
[2020-04-27] MEDS: traZODone HCL 100 MG TABLET (FP) PO SCH (21:29)
[2020-04-27] MEDS: THIAMINE HCL 100 MG TABLET (FP) PO SCH (21:30)
[2020-04-28 07:12] VITALS: BP 90/51; PULSE 62
[2020-04-28] MEDS: PRENATAL VITAMINS W/ FOLIC ACID TABLET (FP) PO SCH (09:28)
[2020-04-28] MEDS: IBUPROFEN 400 MG TABLET (FP) PO PRN (09:28)
[2020-04-28] MEDS: hydrOXYzine PAMOATE 50 MG CAPSULE (FP) PO PRN (09:30)
[2020-04-28] MEDS: NICOTINE 7 MG/24 HOURS TOPICAL PATCH TD SCH (09:57)
[2020-04-28] MEDS: SILVER SULFADIAZINE 1% TOP CREAM 50 GM JAR TP SCH (09:57)
--- NOTE | 2020-04-28 10:01 | DS ---
[facility] Rehab Discharge Summary - [facility] Rehab Discharge Summary Admission Date: 03/28/20 Discharge Date: 04/28/20 - History Present History: Opioid dependence - Discharge Physical Exam Vital Signs: Vital Signs Temperature 97.3 F L 04/28/20 06:04 Pulse Rate 62 04/28/20 06:04 Respiratory Rate 18 04/28/20 06:04 Blood Pressure 90/51 L 04/28/20 06:04 O2 Sat by Pulse Oximetry (%) 96 04/28/20 06:04 Laboratory Tests 04/04/20 04/15/20 04/16/20 10:30 06:39 06:19 POC Glucometer 156 91 COVID-19 (GONZÁLEZ) Not detected Hep A IgM Ab Confirm Hepatitis A Ab Total Hep Bs Antigen Hep Bs Antibody Hep B Core Total Ab Hep B Core IgM Ab Hep B DNA copies/mL Hep B DNA (Units/mL) Hepatitis Be Antibody Hepatitis Be Antigen 04/17/20 04/24/20 04/24/20 06:24 10:50 10:50 POC Glucometer 90 COVID-19 (GONZÁLEZ) Hep A IgM Ab Confirm Negative Hepatitis A Ab Total Negative Hep Bs Antigen Negative Hep Bs Antibody Non reactive Hep B Core Total Ab Positive H Hep B Core IgM Ab Negative Hep B DNA copies/mL TNP Hep B DNA (Units/mL) Hbv dna not detected Hepatitis Be Antibody Positive H Hepatitis Be Antigen Negative ROS: denies shakes, opiod cravings, sweats, fever, cough, chest pain and SI/HI PE alert and oriented x 3 skin warm and dry car s1s2, rrr, no murmurs or gallops resp cta bl ext full rom, amb ad leny denies si/hi A/P: opiod dependence patient is medically stable for d/c aftercare arranged for [facility] - Treatment Discharge Condition: Discharge condition good Hospital Course: Patient discharged from rehab today for Opiod dependence. During course of stay, patient attended group meetings, evaluated and treated by psych team and attended 1:1 sessions with counseling staff. After care arranged for [facility] program. Patient is medically stable and denies SI/HI. Medically advised to continue with manager intermediate program to prevent relapse and follow up with PCP as recommended. Ambulatory Orders Naloxone HCl [Narcan] 4 mg NS ASDIR PRN #1 spray 03/27/20 Trazodone HCl 150 mg PO HS #30 tablet 04/27/20 - Medication Discharge Medications: Ambulatory Orders Naloxone HCl [Narcan] 4 mg NS ASDIR PRN #1 spray 03/27/20 Trazodone HCl 150 mg PO HS #30 tablet 04/27/20 - Medication-Assisted Treatment (MAT) Medication-Assisted Treatment (MAT): No MAT Follow-up Referral: [facility]. - Discharge Instructions Diet, activity, other medical instructions: Diet: reg as tolerated Activity: ad leny as skyler Other medical instructions: f/u with pcp as recommended - Follow-up Referral Minutes to complete discharge: 35 - AMA Did Patient Leave Against Medical Advice: No
== END 2020-04-28 10:15 | disposition home or self-care (01) | DRG 772 ==
LOC: YASAS 11:26 → Y3W 11:29
PROVIDERS: ADMIT Allergy & Immunology; ATTEND Allergy & Immunology
PROC: HZ42ZZZ Group Counseling for Substance Abuse Treatment, Cognitive-Behavioral (ICD-10-PCS; principal; 2020-03-28)
DX: F11.20 Opioid dependence, uncomplicated (principal); F13.20 Sedative, hypnotic or anxiolytic dependence, uncomplicated; F17.210 Nicotine dependence, cigarettes, uncomplicated; F19.282 Other psychoactive substance dependence with psychoactive substance-induced sleep disorder; E11.9 Type 2 diabetes mellitus without complications; K62.5 Hemorrhage of anus and rectum; M17.0 Bilateral primary osteoarthritis of knee; M19.071 Primary osteoarthritis, right ankle and foot; M19.072 Primary osteoarthritis, left ankle and foot; M19.012 Primary osteoarthritis, left shoulder; M19.011 Primary osteoarthritis, right shoulder; Z86.19 Personal history of other infectious and parasitic diseases; Z89.412 Acquired absence of left great toe; Z56.0 Unemployment, unspecified; Z59.0 Homelessness
CPT/HCPCS: 36415; 82962; 86704; 86706; 86707; 86708; 86709; 87340; 87517; U0003